=== PATIENT | male | born 1995 | race Two or more races ===

== ENCOUNTER 2021-07-07 01:50 | Emergency (ER) | payer MEDICAID, OTHER ==
[~2021-07-07] VITALS: Ht 175.3 cm; Wt 167.8 kg
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
--- NOTE | 2021-07-07 03:02 | NUR ---
PT ELOPED PRIOR TO MD ASSESSMENT. MD WAS ON HER WAY SEE PT BUT HE ALREADY ORDERED AN UBER AND READY TO GO. MD IS AWARE.
[2021-07-07 03:04] VITALS: BP 137/96
== END 2021-07-07 03:06 | disposition left against medical advice (07) ==
LOC: ER 01:53
DX: Z53.21 Procedure and treatment not carried out due to patient leaving prior to being seen by health care provider (principal); M54.9 Dorsalgia, unspecified; F41.9 Anxiety disorder, unspecified; F17.200 Nicotine dependence, unspecified, uncomplicated; V49.69XA Unspecified car occupant injured in collision with other motor vehicles in traffic accident, initial encounter; Y93.89 Activity, other specified; Y92.89 Other specified places as the place of occurrence of the external cause; Y99.8 Other external cause status